=== PATIENT | female | born 1995 | race Caucasian/White ===

== ENCOUNTER 2019-04-22 05:02 | Emergency (ER) | payer OTHER ==
--- NOTE | 2019-04-22 06:36 | RADIOLOGY REPORT (SQ) ---
EXAM DESCRIPTION: XR SHOULDER 2 OR MORE VIEWS COMPLETED DATE/TME: 04/22/2019 05:06 CLINICAL HISTORY: 24 years, Female, bone tenderness COMPARISON: None. NUMBER OF VIEWS: 2 TECHNIQUE: 2 views right shoulder LIMITATIONS: None FINDINGS: Anterior inferior dislocation of the humeral head relative to the bony glenoid. No acute fracture IMPRESSION: Humeral dislocation as above copyright 2010 [employer]- All Rights Reserved
[2019-04-22] MEDS ORDERED: IBUPROFEN 800 MG TABLET PO ONE (06:51)
--- NOTE | 2019-04-22 06:51 | ER Document Report ---
ED General - General Chief Complaint: Shoulder Pain Stated Complaint: RIGHT SHOULDER PAIN Time Seen by Provider: 04/22/19 06:43 TRAVEL OUTSIDE OF THE [place] IN LAST 30 DAYS: No - HPI Onset: Just prior to arrival Onset/Duration: Sudden Quality of pain: Sharp Severity: Moderate Pain Level: 3 Context: 24 year old right handed female rolled over in bed and right shoulder "dislocated." History of the same multiple times previously. No other injuries. Perhaps 9 similar in the past. No other injury. Exacerbated by: Movement Relieved by: Denies Similar symptoms previously: Yes Recently seen / treated by doctor: No - Related Data Allergies/Adverse Reactions: No Known Allergies Allergy (Unverified 04/22/19 05:31) Home Medications: No home meds Past Medical History - Social History Smoking Status: Never Smoker Chew tobacco use (# tins/day): No Frequency of alcohol use: Social Drug Abuse: None Family History: Reviewed & Not Pertinent Patient has suicidal ideation: No Patient has homicidal ideation: No Review of Systems - Review of Systems Constitutional: No symptoms reported EENT: No symptoms reported Cardiovascular: No symptoms reported Respiratory: No symptoms reported Gastrointestinal: No symptoms reported Genitourinary: No symptoms reported Female Genitourinary: No symptoms reported Musculoskeletal: See HPI Skin: No symptoms reported Hematologic/Lymphatic: No symptoms reported Neurological/Psychological: No symptoms reported Physical Exam - Vital signs Vitals: Temp Pulse Resp BP Pulse Ox 97.5 F 83 16 96/58 L 100 04/22/19 05:17 04/22/19 05:17 04/22/19 05:17 04/22/19 05:17 04/22/19 05:17 Interpretation: Normal - General General appearance: Appears well, Alert - HEENT Head: Normocephalic, Atraumatic Eyes: Normal Pupils: PERRL - Respiratory Respiratory status: No respiratory distress Chest status: Nontender Breath sounds: Normal Chest palpation: Normal - Cardiovascular Rhythm: Regular Heart sounds: Normal auscultation Murmur: No - Abdominal Inspection: Normal Distension: No distension Bowel sounds: Normal Tenderness: Nontender Organomegaly: No organomegaly - Back Back: Normal, Nontender - Extremities General upper extremity: Normal inspection - right shoulder held at side. deformity anteriorly., Nontender, Normal color, Normal ROM, Normal temperature General lower extremity: Normal inspection, Nontender, Normal color, Normal ROM, Normal temperature, Normal weight bearing. No: Hayde's sign Shoulder: Tender, Deformity, Dislocation - Neurological Neuro grossly intact: Yes Cognition: Normal Orientation: AAOx4 Andrea Coma Scale Eye Opening: Spontaneous [place] Coma Scale Verbal: Oriented [place] Coma Scale Motor: Obeys Commands [place] Coma Scale Total: 15 Speech: Normal Motor strength normal: LUE, RUE, LLE, RLE Sensory: Normal - Psychological Associated symptoms: Normal affect, Normal mood - Skin Skin Temperature: Warm Skin Moisture: Dry Skin Color: Normal Course - Re-evaluation Re-evalutation: 04/22/19 07:58 MDM Pt has recurrent dislocation right shoulder. She is adamant that she refuses any medicine and would like reduction done or at least attempted wihtout medication. Recheck she is improved. We discussed follow up and she expressed understanding. - Vital Signs Vital signs: Temp Pulse Resp BP Pulse Ox 98.5 F 85 16 106/69 100 04/22/19 08:09 04/22/19 08:09 04/22/19 08:09 04/22/19 08:09 04/22/19 08:09 Procedures - Joint Reduction/Fracture Care Right Shoulder Time completed: 06:40 Consent obtained: No - She would like no medicine and we will gently Conscious sedation: No Post-reduction x-ray: Joint reduced Complications: No Discharge - Discharge Clinical Impression: Recurrent dislocation, right shoulder Condition: Good Disposition: HOME, SELF-CARE Instructions: Ice Packs ([facility]), Shoulder Dislocation ([facility]), Shoulder Injury ([facility]) Additional Instructions: Call orthopedics for follow up. Ice to the shoulder. Return here for any problems or any concerns. Prescriptions: Ibuprofen [Motrin 600 mg Tablet] 600 mg PO TID #30 tablet Forms: Return to Work
--- NOTE | 2019-04-22 07:24 | RADIOLOGY REPORT (SQ) ---
EXAM: X-ray shoulder two or more views CLINICAL DATA: 24-year-old female status post reduction TECHNICAL DATA: Two x-ray views of the right shoulder were performed on 04/22/2019 at 6:50 AM. COMPARISONS: 04/22/2019 at 6:08 AM FINDINGS: There has been satisfactory closed reduction of the right shoulder dislocation. No definite acute fracture identified. The visualized right hemithorax is unremarkable. The surrounding soft tissues are within normal limits. Bone mineralization is normal. IMPRESSION: Satisfactory closed reduction of the right shoulder dislocation without definite acute fracture identified.
[2019-04-22 08:10] VITALS: BP 106/69
== END 2019-04-22 08:10 | disposition home or self-care (01) ==
LOC: ER 05:02
DX: M24.411 Recurrent dislocation, right shoulder (principal); M25.511 Pain in right shoulder
CPT/HCPCS: 73030; L3650; 99283

== ENCOUNTER 2019-12-04 10:45 | Emergency (ER) | payer OTHER ==
[2019-12-04] MEDS ORDERED: HYDROCODONE/ACETAMINOPHEN 5-325 MG TABLET PO ONE (11:13)
--- NOTE | 2019-12-04 11:41 | ER Document Report ---
Entered by PARISA BUCKNER SCRIBE 12/04/19 1127 Acting as scribe for:MAINE ISSA DO ED Extremity Problem, Upper - General Chief Complaint: Shoulder Injury Stated Complaint: SHOULDER INJURY Primary Care Provider: LUCIAN NORMAN MD [ACTIVE PROVISIONAL STAFF] - 12/08/19 Mode of Arrival: Medic Information source: Patient Notes: This 24 year old female patient presents to the emergency department this afternoon with complaints of a possible right shoulder dislocation. 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 Patient reports > 10 right shoulder dislocations throughout her life. Patient states she has been told she needs to have the surgery on the shoulder but she has not yet done that. Distal sensation and pulses intact. TRAVEL OUTSIDE OF THE [place] IN LAST 30 DAYS: No - Related Data Allergies/Adverse Reactions: No Known Allergies Allergy (Unverified 04/22/19 05:31) Past Medical History - General Information source: Patient - Social History Smoking Status: Never Smoker Cigarette use (# per day): No Frequency of alcohol use: None Drug Abuse: None Lives with: Family Family History: Reviewed & Not Pertinent Traumatic Medical History: Reports: Other - History of greater than 10 right shoulder dislocations Surgical Hx: Negative Review of Systems - Review of Systems Constitutional: No symptoms reported EENT: No symptoms reported Cardiovascular: No symptoms reported Respiratory: No symptoms reported Gastrointestinal: No symptoms reported Genitourinary: No symptoms reported Female Genitourinary: No symptoms reported Musculoskeletal: See HPI, Joint pain - right shoulder Skin: No symptoms reported Hematologic/Lymphatic: No symptoms reported Neurological/Psychological: No symptoms reported -: Yes All other systems reviewed and negative Physical Exam - Vital signs Vitals: Temp Pulse Resp BP Pulse Ox 98.7 F 96 20 127/84 H 99 12/04/19 10:46 12/04/19 10:46 12/04/19 10:46 12/04/19 10:46 12/04/19 10:46 - Notes Notes: Physical Exam: General: Alert, appears well. HEENT: Normocephalic. Atraumatic. PERRL. Extraocular movements intact. Oropharynx clear. Neck: Supple. Non-tender. Respiratory: No respiratory distress. Clear and equal breath sounds bilaterally. Cardiovascular: Regular rate and rhythm. Abdominal: Normal Inspection. Non-tender. No distension. Normal Bowel Sounds. Back: No gross abnormalities. Extremities: Moves all four extremities. Upper extremities: Deformity of right shoulder, dislocation. No elbow tenderness. Lower extremities: Normal inspection. No edema. Normal ROM. Neurological: Normal cognition. AAOx4. Normal speech. Psychological: Normal affect. Normal Mood. Skin: Warm. Dry. Normal color. Course - Re-evaluation Re-evalutation: 12/04/19 12:06 MDM 24 year old with recurrent dislocation right shoulder. Tells me not and was pulling weeds. Gentle manipulation relocates shoulder without difficulty. Tolerated well. Distal mvi post. Discussed follow up. - Vital Signs Vital signs: Temp Pulse Resp BP Pulse Ox 98.3 F 87 18 116/73 100 12/04/19 12:51 12/04/19 12:51 12/04/19 12:51 12/04/19 12:51 12/04/19 12:51 - Diagnostic Test Radiology reviewed: Image reviewed, Reports reviewed Procedures - Joint Reduction/Fracture Care Right Shoulder Time completed: 11:00 Consent obtained: Yes Conscious sedation: No Pre-procedure NV exam: Yes Manipulation comment: gentle traction used to reduce right shoulder. No comp. Xray pending Post-procedure NV exam: Yes Post-reduction x-ray: Joint reduced Complications: No Discharge - Discharge Clinical Impression: Instability of right shoulder joint, Recurrent dislocation, right shoulder Condition: Good Disposition: HOME, SELF-CARE Instructions: Oral Narcotic Medication ([facility]), Shoulder Dislocation ([facility]), Sling as Treatment ([facility]) Additional Instructions: Rest, ice to right shoulder. See the orthopedist in follow up to discuss repair. Please return here for any problems or any concerns. Take ibuprofen as needed for pain. Referrals: LUCIAN NORMAN MD [ACTIVE PROVISIONAL STAFF] - 12/08/19 I personally performed the services described in the documentation, reviewed and edited the documentation which was dictated to the scribe in my presence, and it accurately records my words and actions.
--- NOTE | 2019-12-04 11:51 | RADIOLOGY REPORT (SQ) ---
EXAM DESCRIPTION: SHOULDER RIGHT 2 OR MORE VIEWS IMAGES COMPLETED DATE/TIME: 12/04/2019 11:34 am REASON FOR STUDY: pain, dislocation COMPARISON: 04/22/2019 NUMBER OF VIEWS: Three views. TECHNIQUE: Internal rotation, external rotation, and Y view images acquired of the right shoulder. LIMITATIONS: None. FINDINGS: MINERALIZATION: Normal. BONES: No acute fracture. No worrisome bone lesions. JOINTS: No dislocation. VISUALIZED LUNGS AND RIBS: No pneumothorax. No rib fracture. SOFT TISSUES: No radiopaque foreign body. OTHER: No other significant finding. IMPRESSION: NEGATIVE STUDY OF THE RIGHT SHOULDER. NO RADIOGRAPHIC EVIDENCE OF ACUTE INJURY. TECHNICAL DOCUMENTATION: JOB ID: [id number] 2010 [employer]- All Rights Reserved Reading location - IP/workstation name: [email or web address]
[2019-12-04 12:52] VITALS: BP 116/73
== END 2019-12-04 12:53 | disposition home or self-care (01) ==
LOC: ER 10:45
PROC: 0RSJXZZ Reposition Right Shoulder Joint, External Approach (ICD-10-PCS; principal; 2019-12-04)
DX: M25.311 Other instability, right shoulder (principal); M24.411 Recurrent dislocation, right shoulder; M25.511 Pain in right shoulder; X50.3XXA Overexertion from repetitive movements, initial encounter; Y93.H2 Activity, gardening and landscaping
CPT/HCPCS: 99283